=== PATIENT | female | born 1995 | race Caucasian/White ===

== ENCOUNTER 2017-03-10 09:31 | Emergency (ER) | payer OTHER ==
[~2017-03-10] VITALS: Wt 71.0 kg
[~2017-03-10 09:31] MED LIST: LORA-441 PO
--- NOTE | 2017-03-10 10:00 | ERA ---
ER Documentation Chief Complaint Date/Time DATE: 03/10/17 TIME: 09:58 Chief Complaint VAG BLEED SINCE YESTERDAY 9 WEEKS PREG HPI Patient is a 21-year-old female who is 9 weeks with a chief complaint of spotting and back pain. This is the patient's first . Patient has medical history of anxiety. Patient's symptoms started 8-12 hours ago. Patient has no other complaints. Patient has not done anything to relieve the symptoms. Patient denies nausea, vomiting, diarrhea, headache, changes in vision, trauma or alteration and activity. ROS All systems reviewed and are negative except as per history of present illness. Medications Home Meds Reported Medications Lorazepam* (Ativan*) 0.5 Mg Tablet, PO Q8 PRN 12/18/11 Allergies Allergies: Coded Allergies: No Known Allergy (Unverified , 01/13/12) PMhx/Soc History of Surgery: No Anesthesia Reaction: No Hx Neurological Disorder: No Hx Respiratory Disorders: No Hx Cardiac Disorders: No Hx Psychiatric Problems: No Hx Miscellaneous Medical Probl: No Hx Alcohol Use: No Hx Substance Use: No Hx Tobacco Use: No Physical Exam Vitals Vital Signs Date Time Temp Pulse Resp B/P Pulse Ox O2 Delivery O2 Flow Rate FiO2 03/10/17 09:35 98.0 80 18 128/71 99 Physical Exam Const: Well-appearing 21-year-old female. Head: Atraumatic Eyes: Normal Conjunctiva ENT: Normal External Ears, Nose and Mouth. Neck: Full range of motion..~ No meningismus. Resp: Clear to auscultation bilaterally Cardio: Regular rate and rhythm, no murmurs Abd: Soft, non tender, non distended. Normal bowel sounds. Fetus size is not appreciable. Skin: No petechiae or rashes Back: No midline or flank tenderness Ext: No cyanosis, or edema Neur: Awake and alert Psych: Normal Mood and Affect Result Diagram: 03/10/17 1012 Results 24 hrs Laboratory Tests Test 03/10/17 10:12 White Blood Count 5.810^3/ul Red Blood Count 4.4110^6/ul Hemoglobin 13.2g/dl Hematocrit 38.5% Mean Corpuscular Volume 87.3fl Mean Corpuscular Hemoglobin 29.9pg Mean Corpuscular Hemoglobin Concent 34.3g/dl Red Cell Distribution Width 12.2% Platelet Count 03540^3/UL Mean Platelet Volume 10.2fl Neutrophils % 65.2% Lymphocytes % 26.5% Monocytes % 6.7% Eosinophils % 1.0% Basophils % 0.3% Nucleated Red Blood Cells % 0.0/100WBC Neutrophils # 3.810^3/ul Lymphocytes # 1.510^3/ul Monocytes # 0.410^3/ul Eosinophils # 0.110^3/ul Basophils # 0.010^3/ul Nucleated Red Blood Cells # 0.010^3/ul Beta HCG, Quantitative 87423.0mIU/ml Procedures/MDM Patient is 9 weeks. Has a chief complaint of spotting and back pain 8-12 hours. Patient was worked up to evaluate fetus viability. Ultrasound revealed the following: Single live intrauterine with an estimated gestational age of 9 weeks 1 day by ultrasound criteria and an estimated date of delivery of 10/12/2017. Labs were unremarkable. There is no reason for me to suspect at this time endangerment of the fetus or the mother. There is no reason for me to suspect appendicitis or infectious process. We will go ahead and discharge patient with return precautions. I told the patient is follow-up with [facility] in the next 2 days for reevaluation of a beta hCG levels Departure Diagnosis: Primary Impression: Vaginal bleeding Additional Impression: Vaginal bleeding in patient at less than 20 weeks gestation Condition: Stable Additional Instructions: Follow up with your PCP within the next 1-3 days for a more thorough evaluation and a possible referral to a specialist. Return the the emergency department immediately if symptoms worsen or change. If you have any questions regarding medications, ask your pharmacist or us before you leave. If any adverse reactions occur while taking your medications, discontinue the treatment and return to the emergency department immediately. Take your medications as directed, and complete the entire course of treatment. MELANIE GERMAN PA-C Mar 10, 2017 10:00
[2017-03-10 10:35] LABS: ADD SCAN DIFF NO
[2017-03-10 11:00] LABS: BASOPHILS % 0.3 % (0.0-2.0); EOSINOPHILS # 0.1 10^3/ul (0.0-0.5); HEMATOCRIT 38.5 % (37.0-47.0); HEMOGLOBIN 13.2 g/dl (12.0-16.0); LYMPHOCYTES # 1.5 10^3/ul (0.8-2.9); LYMPHOCYTES % 26.5 % (15.0-51.0); MEAN CORPUSCULAR HEMOGLOBIN 29.9 pg (29.0-33.0); MEAN CORPUSCULAR HGB CONC 34.3 g/dl (32.0-37.0); MEAN CORPUSCULAR VOLUME 87.3 fl (82.0-101.0); MEAN PLATELET VOLUME 10.2 fl (7.4-10.4); MONOCYTE # 0.4 10^3/ul (0.3-0.9); MONOCYTES % 6.7 % (0.0-11.0); NEUTROPHIL # 3.8 10^3/ul (1.6-7.5); NEUTROPHILS % 65.2 % (39.0-77.0); PLATELET COUNT 232 10^3/UL (140-415); RED BLOOD COUNT 4.41 10^6/ul (4.20-5.40); RED CELL DISTRIBUTION WIDTH 12.2 % (11.5-14.5); WHITE BLOOD COUNT 5.8 10^3/ul (4.8-10.8)
--- NOTE | 2017-03-10 11:28 | RADRPT ---
PROCEDURE: US OB. CLINICAL INDICATION: Vaginal bleeding TECHNIQUE: Transabdominal and endovaginal imaging of the gravid uterus is available for review COMPARISON: None available FINDINGS: There is a single intrauterine demonstrating a heart rate of 163 bpm. The crown-rump susie th equals 2.6 cm, giving an estimated gestational age of 9 weeks 1 day by ultrasound criteria. No s ubchorionic hemorrhage is identified. The ovaries are unremarkable. IMPRESSION: Single live intrauterine with an estimated gestational age of 9 weeks 1 day by ultrasound criteria and an estimated date of delivery of 10/12/2017. RPTAT: HH .Radha Alston MD, MD Date Time Electronically viewed and signed by .Radha Alston MD, on 03/10/2017 11:27 .G/
[2017-03-10 13:09] VITALS: BP 116/66; PULSE 72; RESP 18
== END 2017-03-10 13:09 | disposition home or self-care (01) ==
LOC: FTE 09:31
DX: O20.9 Hemorrhage in early pregnancy, unspecified (principal); Z3A.09 9 weeks gestation of pregnancy
CPT/HCPCS: 36415; 76801; 84702; 85025; 86900; 86901

== ENCOUNTER 2017-03-12 16:07 | Emergency (ER) | payer OTHER ==
[~2017-03-12] VITALS: Ht 165.1 cm; Wt 68.0 kg
[2017-03-12 16:40] VITALS: Ht 165.1 cm; Wt 68.0 kg
[2017-03-12] MEDS ORDERED: ACETAMINOPHEN 325 MG TAB PO STA (18:05)
[2017-03-12 18:17] LABS: ADD SCAN DIFF NO
[2017-03-12 18:22] LABS: BASOPHILS % 0.3 % (0.0-2.0); EOSINOPHILS # 0.1 10^3/ul (0.0-0.5); EOSINOPHILS % 0.8 % (0.0-7.0); HEMATOCRIT 39.1 % (37.0-47.0); HEMOGLOBIN 13.2 g/dl (12.0-16.0); LYMPHOCYTES # 1.9 10^3/ul (0.8-2.9); LYMPHOCYTES % 23.9 % (15.0-51.0); MEAN CORPUSCULAR HEMOGLOBIN 29.3 pg (29.0-33.0); MEAN CORPUSCULAR HGB CONC 33.8 g/dl (32.0-37.0); MEAN CORPUSCULAR VOLUME 86.9 fl (82.0-101.0); MEAN PLATELET VOLUME 9.6 fl (7.4-10.4); MONOCYTE # 0.6 10^3/ul (0.3-0.9); MONOCYTES % 7.3 % (0.0-11.0); NEUTROPHIL # 5.4 10^3/ul (1.6-7.5); NEUTROPHILS % 67.3 % (39.0-77.0); PLATELET COUNT 234 10^3/UL (140-415); RED CELL DISTRIBUTION WIDTH 12.4 % (11.5-14.5)
[2017-03-12 18:26] LABS: URINE BLOOD (Dip) POC 2+ (NEGATIVE)
--- NOTE | 2017-03-12 19:10 | ERD ---
ER Documentation Chief Complaint Date/Time DATE: 03/12/17 TIME: 19:07 Chief Complaint VB W/ CRAMPING/CLOTS X3 DAYS. HPI This is a 21-year-old female presenting to the emergency department for vaginal bleeding and pelvic cramping 3 days. Patient is currently 9 weeks with last menstrual period 01/03/2017. Patient is a A0. Patient's first appointment with [facility] is 03/20/[address] Home Hodges. Patient was seen here 2 days ago and was told to return for repeat lab work and ultrasound. Patient states she has intermittent spotting with some passage of clots. No tissue passed. Patient continues to have pelvic cramping. ROS All systems reviewed and are negative except as per history of present illness. Medications Home Meds Active Scripts Nitrofurantoin Monohyd Macrocr* (Macrobid*) 100 Mg Capsr, 100 MG PO BID for 5 Days, CAP Prov:MAURO CARLSON [employer] 03/12/17 Reported Medications Lorazepam* (Ativan*) 0.5 Mg Tablet, PO Q8 PRN 12/18/11 Allergies Allergies: Coded Allergies: No Known Allergy (Unverified , 01/13/12) PMhx/Soc Medical and Surgical Hx: pt denies Medical Hx, pt denies Surgical Hx History of Surgery: No Anesthesia Reaction: No Hx Neurological Disorder: No Hx Respiratory Disorders: No Hx Cardiac Disorders: No Hx Psychiatric Problems: No Hx Miscellaneous Medical Probl: No Hx Alcohol Use: No Hx Substance Use: No Hx Tobacco Use: No Physical Exam Vitals Vital Signs Date Time Temp Pulse Resp B/P Pulse Ox O2 Delivery O2 Flow Rate FiO2 03/12/17 16:40 99.5 84 16 134/85 99 Physical Exam Const: No acute distress, alert Head: Atraumatic Eyes: Normal Conjunctiva ENT: Normal External Ears, Nose and Mouth. Neck: Full range of motion..~ No meningismus. Resp: Clear to auscultation bilaterally Cardio: Regular rate and rhythm, no murmurs Abd: Soft, non tender, non distended. Normal bowel sounds Skin: No petechiae or rashes Back: No midline or flank tenderness Ext: No cyanosis, or edema Neur: Awake and alert Psych: Normal Mood and Affect Result Diagram: 03/12/17 1810 Results 24 hrs Laboratory Tests Test 03/12/17 18:10 03/12/17 18:26 White Blood Count 8.010^3/ul Red Blood Count 4.5010^6/ul Hemoglobin 13.2g/dl Hematocrit 39.1% Mean Corpuscular Volume 86.9fl Mean Corpuscular Hemoglobin 29.3pg Mean Corpuscular Hemoglobin Concent 33.8g/dl Red Cell Distribution Width 12.4% Platelet Count 06533^3/UL Mean Platelet Volume 9.6fl Neutrophils % 67.3% Lymphocytes % 23.9% Monocytes % 7.3% Eosinophils % 0.8% Basophils % 0.3% Nucleated Red Blood Cells % 0.0/100WBC Neutrophils # 5.410^3/ul Lymphocytes # 1.910^3/ul Monocytes # 0.610^3/ul Eosinophils # 0.110^3/ul Basophils # 0.010^3/ul Nucleated Red Blood Cells # 0.010^3/ul Beta HCG, Quantitative 69864.0mIU/ml Bedside Urine pH (LAB) 7.0 Bedside Urine Protein (LAB) Trace Bedside Urine Glucose (UA) Negative Bedside Urine Ketones (LAB) 3+ Bedside Urine Blood 2+ Bedside Urine Nitrite (LAB) Negative Bedside Urine Leukocyte Esterase (L 1+ Current Medications Medications (Trade) Dose Ordered Sig/Miladys Route PRN Reason Start Time Stop Time Status Last Admin Dose Admin Acetaminophen (Tylenol Tab) 650 mg ONCE STAT PO 03/12/17 18:05 03/12/17 18:07 DC Procedures/MDM ED COURSE: The patient was stable throughout ED course. I kept the patient and/or family informed of laboratory and diagnostic imaging results throughout the ED course. Laboratory CBC no significant anemia or infection. Beta-hCG 73,231 Urine dip 1+ leukocytosis, 2+ blood, 3+ ketones and trace protein Imaging OB ultrasound Patient: KHALIF JAIMES : 1995 Age: 21 Sex: F MR #: [id number] DOS: 03/12/17 1805 Ordering MD: MAURO CARLSON NP Location: [facility] Room/Bed: PROCEDURE: US OB. CLINICAL INDICATION: Vaginal bleeding. TECHNIQUE: Multiple sonographic images of the pelvis were obtained. Transabdominal and transvaginal views of the pelvis are available for review. The images were reviewed on a PACS workstation. COMPARISON: 03/10/2017 FINDINGS: A single live intrauterine is identified. heart rate is 171 beats per minute. The crown-rump length is 26.7 mm which corresponds to 9 weeks 3 days gestational age by ultrasound criteria. Estimated date of delivery is by crown rump length.. No subchorionic hemorrhage is identified. The ovaries are unremarkable. There is no adnexal mass or free fluid. IMPRESSION: 1. Single live intrauterine gestation of approximately 9 weeks 3 days. 2. No subchorionic hemorrhage. MDM: 21-year-old female presents emergency department for pelvic pain and vaginal bleeding 3 days. Patient was seen here 2 days ago and was told to return in 2 days for repeat lab work and ultrasound. Patient continues to have intermittent light spotting with pelvic cramping. Denies dysuria or hematuria. Vital signs are stable. Remains hemodynamically stable. Urine dip shows evidence of likely UTI. Labs unremarkable and beta Hcg is 73,231. OB ultrasound reviewed by radiologist as singling live intrauterine gestation of approximately 9 weeks 3 days. No subchorionic hemorrhage. Low suspicion for ectopic or missed . Patient's diagnosis is UTI and vaginal bleeding in patient. Patient is appropriate for outpatient management and will be discharged with prescription for Macrobid. Instructed patient to follow up with OBGYN in the next 2-3 days for reassessment. Return to ED for any new or worsening symptoms. Patient verbalizes understanding. All questions answered at discharge. Departure Diagnosis: Primary Impression: Vaginal bleeding in patient at less than 20 weeks gestation Additional Impression: UTI (urinary tract infection) Urinary tract infection type: acute cystitis Hematuria presence: with hematuria Qualified Code: N30.01 - Acute cystitis with hematuria Condition: Stable MAURO CARLSON NP Mar 12, 2017 19:10
[2017-03-12] MEDS ORDERED: NITR-58 PO (19:58)
--- NOTE | 2017-03-12 20:12 | RADRPT ---
PROCEDURE: US OB. CLINICAL INDICATION: Vaginal bleeding. TECHNIQUE: Multiple sonographic images of the pelvis were obtained. Transabdominal and transvagin al views of the pelvis are available for review. The images were reviewed on a PACS workstation. COMPARISON: 03/10/2017 FINDINGS: A single live intrauterine is identified. heart rate is 171 beats per minute. The cr own-rump length is 26.7 mm which corresponds to 9 weeks 3 days gestational age by ultrasound criteri a. Estimated date of delivery is 10/12/2017 by crown rump length.. No subchorionic hemorrhage is i dentified. The ovaries are unremarkable. There is no adnexal mass or free fluid. IMPRESSION: 1. Single live intrauterine gestation of approximately 9 weeks 3 days. 2. No subchorionic hemorrhage. RPTAT: [facility]K .Barrett Moore MD, Date Time Electronically viewed and signed by .Barrett Moore MD, on 03/12/2017 20:12 .K/
== END 2017-03-12 21:05 | disposition home or self-care (01) ==
LOC: FTE 16:07 → EDUNIT# 16:07 → FTE 21:05
DX: O20.9 Hemorrhage in early pregnancy, unspecified (principal); O23.11 Infections of bladder in pregnancy, first trimester; Z3A.09 9 weeks gestation of pregnancy
CPT/HCPCS: 36415; 76801; 81003; 84702; 85025; Z7502

== ENCOUNTER 2018-10-21 16:36 | Outpatient (CLI) | END 2018-10-21 21:56 | disposition home or self-care (01) ==

== ENCOUNTER 2018-10-22 20:29 | Outpatient (CLI) | END 2018-10-22 21:39 | disposition home or self-care (01) ==